=== PATIENT | male | born 1960 | race Caucasian/White ===

== ENCOUNTER 2017-09-13 12:37 | Emergency (ER) | payer MEDICARE ==
[2017-09-13 12:56] VITALS: TEMP 97.8
[2017-09-13 13:08] VITALS: BMI 23.7
--- NOTE | 2017-09-13 13:26 | C.PDOC ---
History Of Present Illness 56-year-old male, s/p TAVR two weeks ago, presents to the emergency department with complaints of shortness of breath x1 week, that worsens with exertion and laying flat. Patient denies nausea/vomiting, fevers or chills. No chest pain, dizziness, blurred vision, abdominal pain, or any other associated symptoms. No other complaints at this time. Time Seen by Provider: 09/13/17 12:51 Chief Complaint (Nursing): Shortness Of Breath History Per: Patient History/Exam Limitations: no limitations Onset/Duration Of Symptoms: Days Current Symptoms Are (Timing): Still Present Past Medical History Reviewed: Historical Data, Nursing Documentation, Vital Signs Vital Signs: Last Vital Signs Temp 97.8 F 09/13/17 12:55 Pulse 81 09/13/17 15:43 Resp 20 09/13/17 15:43 BP 138/50 L 09/13/17 15:43 Pulse Ox 98 09/13/17 15:43 - Medical History PMH: CAD, Depression, Diabetes, HTN Surgical History: Coronary Stent (x3) - [facility] [employer] Procedures CORONAR ARTERIOGR-2 CATH (12/06/12) LEFT HEART CARDIAC CATH (12/06/12) LT HEART ANGIOCARDIOGRAM (12/06/12) Family History: States: No Known Family Hx - Social History Hx Tobacco Use: No Hx Alcohol Use: No Hx Substance Use: No - Immunization History Hx Tetanus Toxoid Vaccination: No Hx Influenza Vaccination: No Hx Pneumococcal Vaccination: No Review Of Systems Except As Marked, All Systems Reviewed And Found Negative. Constitutional: Negative for: Fever, Chills Cardiovascular: Positive for: Orthopnea. Negative for: Chest Pain, Palpitations , Edema, Light Headedness Respiratory: Positive for: Shortness of Breath, SOB with Excertion Gastrointestinal: Negative for: Nausea, Vomiting, Abdominal Pain Musculoskeletal: Negative for: Back Pain Neurological: Negative for: Weakness, Numbness, Headache, Dizziness Physical Exam - Physical Exam Appears: Non-toxic, No Acute Distress Skin: Warm, Dry, No Rash Head: Normacephalic, Other (right parietal scalp, 1cm scar.) Eye(s): bilateral: Normal Inspection, PERRL Nose: Normal Oral Mucosa: Moist Lips: Normal Appearing Neck: Normal ROM, Other (scar, right posterior neck) Chest: Symmetrical Cardiovascular: Rhythm Regular, No Murmur Respiratory: Normal Breath Sounds, No Accessory Muscle Use Extremity: Normal ROM, Other (echymosis, no fluctuance. mildly tender to palpation w/ no erythema to right inguinal area. and echymosis on left inguinal area.) Neurological/Psych: Oriented x3, Normal Speech ED Course And Treatment - Laboratory Results Result Diagrams: 09/13/17 13:39 09/13/17 13:39 O2 Sat by Pulse Oximetry: 100 (RA) - Radiology CXR: Interpreted by Me, Viewed By Me CXR Interpretation: Yes: No Acute Disease Progress Note: Bloodwork and CXR ordered and reviewed. Disposition Counseled Patient/Family Regarding: Studies Performed, Diagnosis, Need For Followup - Disposition Referrals: Pranav Schwartz MD [Staff Provider] - Disposition: HOME/ ROUTINE Disposition Time: 15:50 Condition: STABLE Additional Instructions: FOLLOW UP WITH DR SCHWARTZ IN 1-2 DAYS HAVE OUTPATIENT ECHO INSTRUCTED BY DR SCHWARTZ RETURN TO ER IF SYMPTOMS WORSEN Forms: [employer] (Panamanian) Print Language: TRISTANIAN - POA Present On Arrival: None - Clinical Impression Clinical Impression: Dyspnea - Scribe Statement The provider has reviewed the documentation as recorded by the Scribe (Mariella Devine) Provider Attestation: All medical record entries made by the Scribe were at my direction and personally dictated by me. I have reviewed the chart and agree that the record accurately reflects my personal performance of the history, physical exam, medical decision making, and the department course for this patient. I have also personally directed, reviewed, and agree with the discharge instructions and disposition.
[2017-09-13 13:45] LABS: BASO % 0.6 % (0.0-2.0); EOS # 0.2 K/uL (0.0-0.7); EOS % 3.4 % (0.0-4.0); HEMOGLOBIN 10.5 g/dL (12.0-18.0); LYMPH # 1.4 K/uL (1.0-4.3); LYMPH % 22.8 % (20.0-40.0); MEAN CELL VOLUME 84.6 fL (80.0-94.0); MEAN CORPUSCULAR HEMOGLOBIN 29.2 pg (27.0-31.0); MEAN CORPUSCULAR HGB CONC 34.6 g/dL (33.0-37.0); MEAN PLATELET VOLUME 9.2 fL (7.2-11.7); MONO # 0.7 K/uL (0.0-0.8); MONO % 11.5 % (0.0-10.0); NEUT # 3.9 K/uL (1.8-7.0); NEUT % 61.7 % (50.0-75.0); RBC 3.6 Mil/uL (4.40-5.90); RED CELL DISTRIBUTION WIDTH 14.4 % (11.5-14.5); WHITE BLOOD COUNT 6.3 K/uL (4.8-10.8)
--- NOTE | 2017-09-13 13:50 | RAD ---
PROCEDURE: CHEST RADIOGRAPH, 1 VIEW HISTORY: SOB COMPARISON: None available. FINDINGS: LUNGS: Clear. PLEURA: No pneumothorax or pleural fluid seen. CARDIOVASCULAR: Prior sternotomy with sternal wires, surgical clips and prosthetic cardiac valves in place. Atherosclerotic aortic calcifications. Cardiomediastinal silhouette at the upper limits of normal in size. OSSEOUS STRUCTURES: Degenerative changes. VISUALIZED UPPER ABDOMEN: Normal. OTHER FINDINGS: None. IMPRESSION: No active disease.
[2017-09-13 13:51] LABS: INR 1.1; PROTHROMBIN TIME 12.1 SECONDS (9.7-12.2)
[2017-09-13 13:56] LABS: ALB/GLOB RATIO 1.2 (1.0-2.1); ALBUMIN 3.9 g/dL (3.5-5.0); ALT/SGPT 39 U/L (21-72); AST/SGOT 26 U/L (17-59); BLOOD UREA NITROGEN 11 mg/dL (9-20); CALCIUM 9.1 mg/dl (8.6-10.4); GFR AFRICAN-AMERICAN > 60; GFR NON-AFRICAN AMERICAN > 60
[2017-09-13 14:07] LABS: B-TYPE NATRIURETIC PEPTIDE 652 pg/mL (0-900); CK-MB 0.59 ng/mL (0.0-3.38)
[2017-09-13 16:16] VITALS: BP 143/75; PULSE 67; RESP 18; O2SAT 99
--- NOTE | 2017-09-14 22:13 | CARD ---
APPROVED REPORT EKG Measurement Heart [id number] <Conclusion> Normal sinus rhythm Nonspecific T wave abnormality Abnormal ECG
== END 2017-09-13 16:20 | disposition home or self-care (01) ==
LOC: C.ER 12:37
DX: R06.00 Dyspnea, unspecified (principal); E11.9 Type 2 diabetes mellitus without complications; I10 Essential (primary) hypertension; I25.10 Atherosclerotic heart disease of native coronary artery without angina pectoris

== ENCOUNTER 2018-12-05 08:54 | Outpatient (CLI) | payer MEDICARE | END 2018-12-05 08:55 | disposition home or self-care (01) | LOC: C.CARD 08:54 | DX: R07.89 Other chest pain (principal) ==